=== PATIENT | male | born 1970 | race Caucasian/White ===

== ENCOUNTER → 2018-02-15 | Outpatient (CLI) | payer OTHER ==
[~2018-02-15] MED LIST: ADVIL,NUPRIN,M200 MG PO; OMEPRAZOLE40 M1 PO; TYLENOL EXTRA500 MG PO
== END | disposition home or self-care (01) ==
LOC: OPR 09:30 → EDSTATUS 10:00 → OPR 02-18 10:00
DX: C34.31 Malignant neoplasm of lower lobe, right bronchus or lung (principal); J44.9 Chronic obstructive pulmonary disease, unspecified; K21.9 Gastro-esophageal reflux disease without esophagitis; G47.33 Obstructive sleep apnea (adult) (pediatric); Z87.891 Personal history of nicotine dependence
CPT/HCPCS: 71045; 77012; 88305; 88341 TC; 88342 TC; J3010